=== PATIENT | female | born 1980 ===

== ENCOUNTER → 2025-05-28 10:36 | Outpatient (BNVA) | payer OTHER, SELFPAY | PROVIDERS: Visit Provider Podiatrist Foot & Ankle Surgery | DX: M79.671 Pain in right foot (principal); L03.115 Cellulitis of right lower limb; L97.418 Non-pressure chronic ulcer of right heel and midfoot with other specified severity; M77.31 Calcaneal spur, right foot; Q66.71 Congenital pes cavus, right foot; N18.30 Chronic kidney disease, stage 3 unspecified | CPT/HCPCS: 10140; 73630; 99204 ==

== ENCOUNTER → 2025-06-23 11:10 | Outpatient (BNVA) | payer OTHER, SELFPAY | PROVIDERS: PCP Nurse Practitioner Family; Visit Provider Podiatrist Foot & Ankle Surgery | DX: L03.115 Cellulitis of right lower limb (principal); L97.419 Non-pressure chronic ulcer of right heel and midfoot with unspecified severity; N18.30 Chronic kidney disease, stage 3 unspecified; M77.31 Calcaneal spur, right foot; Q66.71 Congenital pes cavus, right foot | CPT/HCPCS: 99213 ==